=== PATIENT | female | born 1990 | race Caucasian/White ===

== ENCOUNTER 2018-05-17 19:38 | Emergency (ER) | payer OTHER, SELFPAY ==
[2018-05-17 19:39] VITALS: BP 165/84; PULSE 85; RESP 16; TEMP 36.8; O2SAT 100; BMI 24.0
[2018-05-17 20:36] LABS: Bacteria 0 SEEN /hpf (None Seen); Mucous, Urine 0 SEEN /hpf (<or=2+)
[2018-05-17 20:50] LABS: Internal QC Validated? YES +Cl - CLEAR BKGD; Pregnancy, Urine Negative Negative
[2018-05-17] MEDS: Naproxen 500 MG Tablet PO (20:54)
[2018-05-17 21:00] LABS: Color, Urine Yellow (Yellow); Glucose, Dipstick Normal (Normal); Ketone-Dipstick Negative (Negative); Leukocyte Esterase-Dipstick 500 /ul (Negative); Nitrite-Dipstick Negative (Negative); Occult Blood-Urine 25 /ul (Negative); Protein-Dipstick Negative (Negative); Specific Gravity, Urine 1.015 (1.002-1.030); Urine Bilirubin Dipstick Negative (Negative); Urine Clarity Sl Cldy (Clear); Urine Urobilinogen Normal (Normal)
[2018-05-17 21:02] LABS: Red Blood Cells-Urine 0-5 SEEN /hpf (0-5); Squamous Epithelial Cells - UA 0-5 SEEN /hpf (5-10); White Blood Cells 25-50 SEEN /hpf (0-5)
[2018-05-17 21:03] LABS: Amorphous Sediment 1+ URATE
[2018-05-17 21:06] LABS: Trichomonas 0-5 SEEN /hpf (None Seen)
--- NOTE | 2018-05-17 21:22 | ED.DCSUM_ITS ---
- ER Visit Summary Date of Service: 05/17/18 Chief Complaint: Vaginal discharge and dysuria History of Present Illness: The patient is a 27 F with a one-month history of dysuria, vaginal discharge, and low back pain. Patient states she had similar symptoms in the past with trichomonas. Last menstrual cycle was 2 weeks ago. Physical Examination: Vital signs unremarkable for blood pressure 165/84, otherwise unremarkable. Patient sitting upright in a bedside chair. She is in no acute distress. Head neck examination is normal. Heart is regular rate and rhythm. Lung sounds are clear. Abdomen is soft with mild tenderness in the suprapubic area. No guarding or rebound is noted. Back examination reveals mild CVA tenderness bilaterally. Test Results: Urinalysis shows 25-50 white cells with 0 bacteria. She does have trichomonas noted in the urine. Urine patency test is negative. Gonorrhea and Chlamydia cultures have been sent. Emergency Department Course and Treatment: Test results were discussed with the patient. She would prefer to do the 2 g of Flagyl now for treatment. She will follow-up with her [facility] for further testing. If her gonorrhea or chlamydia test should come back positive she will receive a phone call with further instructions and antibiotics. Treatment Plan: [] Disposition: Discharge Impression: Trichomonas This note was generated with [employer] dictation software. It may contain incorrect words, spelling, and punctuation that were not noted in review of the chart prior to signing ED Disposition - Plan for ED Patient: Chief Complaint: Complaint Referrals: Levi Malave MD [Primary Care Provider] -
--- NOTE | 2018-05-17 21:22 | ED.DEP ---
ED Disposition - Plan for ED Patient: Disposition: Home or Assisted Living Chief Complaint: Complaint Instructions: ED Vaginitis Trichomonas Referrals: Levi Malave MD [Primary Care Provider] - Reema Mccann MD [STAFF PHYSICIAN] -
[2018-05-17] MEDS: metroNIDAZOLE 500 MG Tablet 2000 MG PO (21:29)
[2018-05-17 21:30] VITALS: BP 133/79; PULSE 79; RESP 18; O2SAT 100
--- NOTE | 2018-05-17 21:36 | ED.RN ---
lab called with positive lab results. urine positive for trichomonas. Dr. Resendiz made aware. no new orders at this time
[2018-05-17 22:20] LABS: Chlamydia Trachomatis by PCR Negative (Negative); Neisserai gonorrhoeae by PCR Negative (Negative); Probe Check PASS; Sample Adequacy Control PASS; Specimen Processing Control PASS
== END 2018-05-17 21:39 | disposition home or self-care (01) ==
PROVIDERS: Emergency Provider Emergency Medicine; Family Provider Family Medicine; PCP Family Medicine
DX: A59.8 Trichomoniasis of other sites (principal)
CPT/HCPCS: 81001; 81025; 87491; 87591; 99283

== ENCOUNTER 2020-10-17 14:25 | Outpatient (CLI) | payer BC, SELFPAY ==
[2020-10-17] VITALS (25 sets, daily range): BP systolic 133–169; BP diastolic 78–100; PULSE 80–94; TEMP 36.8; O2SAT 98–99; BMI 27.4
[2020-10-17] MEDS: Lactated Ringers 1,000 ML 15 ML IV (14:40)
[2020-10-17] MEDS: Magnesium Sulfate 4gm/100mL 4 GM/100 ML IV.SOLN. IV (14:46)
[2020-10-17] MEDS: Labetalol (Prefilled) 20 MG/4 ML IV (14:55)
[2020-10-17] MEDS: Magnesium Sulfate 4gm/100mL 2 GM/50 ML IV.SOLN. IV (15:06)
[2020-10-17 15:12] LABS: Hematocrit 41.2 % (37-47); Hemoglobin 14.2 g/dL (12.0-15.0); Mean Corp Hgb Conc 34.5 g/dL (32-36); Mean Corpuscular Hgb 31.5 pg (27.0-32.0); Mean Corpuscular Volume 91.4 fL (81-99); Mean Platelet Vol. 11.1 fl (6.2-12.0); Platelet Count 244 K/mm3 (150-450); RBC Distribution Width CV 13.2 % (11.6-14.6); RBC Distribution Width SD 43.8 fl (35.1-43.9); Red Blood Count 4.51 M/mm3 (4.2-5.4); White Blood Count 10.4 K/mm3 (4.4-11.0)
--- NOTE | 2020-10-17 15:16 | OB.TRI.NOTE ---
HPI - General HPI Narrative ROD HOLMAN, is a 30 F @ 32.4 weeks Di/Di twins - who presents from [facility] offices due to elevated BP. Most recent ultrasound shows Twin B with reverse flow- plan was to send to [place] for monitoring and delivery but due to BP in office pt sent to [facility] for Magnesium sulfate and labetalol HTN protocol. pt denies CASTRO, visual changes or Epigastric pain. [facility] Medications sulfamethoxazole-trimethoprim 1 tab PO BID #20 tablet 04/03/16 [Rx Last Taken Unknown] Allergy/AdvReac Type Severity Reaction Status Date / Time No Known Allergies Allergy Verified 05/17/18 19:39 Social History Smoking Status: Current every day smoker NST FHR Rate Baby A Baseline: 135 Variability:: Moderate Accelerations:: 15 x 15 Decelerations:: None NST Reactive:: Yes FHR Category:: Category I Uterine Activity:: irregular FHR Rate Baby B Baseline: 135 Variability:: Moderate Accelerations:: 15 x 15 Decelerations:: None NST Reactive:: Yes FHR Category:: Category I Uterine Activity:: irregular Assessment Assessment Detail: @ 32.4 weeks, Di/di twins- IUGR and reverse flow on twin B, severe range BP 1) HTN protocol 2) Magensium 3) transport to [facility] once stable 4) Celestone 12mg IM given in Office today 5) BPP ultrasound done at [facility] office- 12/17 both twins today
[2020-10-17] MEDS: Magnesium Sulfate 20 GM/500 ML BAG IV (15:17)
[2020-10-17 15:23] LABS: Protein, Urine (Random) 7.4 mg/dL (<11.9); Protein:Creat Ratio 361 mg/g CRE (0-200)
[2020-10-17 16:41] LABS: AST(SGOT) 25 U/L (15-37); Alanine Aminotransfer ALT/SGPT 20 U/L (13-56); Creatinine, Serum 0.58 mg/dL (0.55-1.02); EST Glomerular Filtration Rate 130 mL/min (>60); Est Glom Filt Rate - Afr Amer 158 mL/min (>60); Estimated Creatinine Clearance 135.19 ml/min
== END 2020-10-17 16:15 | disposition short-term general hospital (02) ==
LOC: WPOUT 14:33 → WP 14:34
PROVIDERS: PCP Family Medicine; Visit Provider Obstetrics & Gynecology
DX: O26.893 Other specified pregnancy related conditions, third trimester (principal); R03.0 Elevated blood-pressure reading, without diagnosis of hypertension; O30.043 Twin pregnancy, dichorionic/diamniotic, third trimester; O36.5931 Maternal care for other known or suspected poor fetal growth, third trimester, fetus 1; O36.5932 Maternal care for other known or suspected poor fetal growth, third trimester, fetus 2; O99.333 Smoking (tobacco) complicating pregnancy, third trimester; F17.200 Nicotine dependence, unspecified, uncomplicated; Z3A.32 32 weeks gestation of pregnancy
CPT/HCPCS: 96365; 96367; 36415; 59025; 59050; 82565; 82570; 84156; 84450; 84460; 84550; 85027; 94760; 99218; J7120; G0378

== ENCOUNTER → 2021-09-11 | Outpatient (CLI) | payer BC, MEDICAID, SELFPAY ==
[2021-09-11 12:50] LABS: Anion Gap 7 (5-15); BUN 12 mg/dL (7-18); Chloride 106 mmol/L (98-107); Creatinine, Serum 0.67 mg/dL (0.55-1.02); EST Glomerular Filtration Rate 111 mL/min (>60); Est Glom Filt Rate - Afr Amer 135 mL/min (>60); Glucose 88 mg/dL (74-106); Magnesium 2.4 mg/dL (1.6-2.6); Phosphorus 2.7 mg/dL (2.5-4.9); Sodium Level 139 mmol/L (136-145); Thyroid Stim Hormone (TSH) 0.93 uIU/mL (0.358-3.74)
[2021-09-11 12:53] LABS: PTHIN 36.9 pg/mL (18.4-80.1)
== END | disposition home or self-care (01) ==
PROVIDERS: PCP Family Medicine; Referring Provider Family Medicine; Visit Provider Family Medicine
DX: S32.000A Wedge compression fracture of unspecified lumbar vertebra, initial encounter for closed fracture (principal)
CPT/HCPCS: 36415; 80048; 82330; 83735; 83970; 84100; 84443

== ENCOUNTER → 2021-09-20 | Outpatient (CLI) | payer BC, MEDICAID, SELFPAY ==
--- NOTE | 2021-09-20 13:45 | MRI_ITS ---
STUDY: MRI LUMBAR SPINE WITHOUT CONTRAST REASON FOR EXAM: Female, 31 years old. COMPRESSION FX TECHNIQUE: Standardized fat and water weighted pulse sequences were obtained in the sagittal and axial planes. COMPARISON: None FINDINGS: There is a compression fracture of L3 with a Schmorl''s node. There is mild retropulsion of bone into the canal. There is mild indentation of the superior endplate of L1 with resultant mild compression. T12-L1: Normal endplates. Normal disc height, hydration and morphology. Normal bilateral facet joints. Normal central canal and bilateral lateral recesses. Normal bilateral intervertebral neural foramina. Normal lumbar lordosis. There is no substantial scoliosis. Normal conus medullaris that terminates at the L1-2: Normal endplates. Normal disc height, hydration and morphology. Normal bilateral facet joints. Normal central canal and bilateral lateral recesses. Normal bilateral intervertebral neural foramina. L2-3: Normal endplates. Normal disc height, hydration and morphology. Normal bilateral facet joints. Normal central canal and bilateral lateral recesses. Normal bilateral intervertebral neural foramina. L3-4: Normal endplates. Normal disc height, hydration and morphology. Normal bilateral facet joints. Normal central canal and bilateral lateral recesses. Normal bilateral intervertebral neural foramina. L4-5: Normal endplates. Normal disc height, hydration and morphology. Normal bilateral facet joints. Normal central canal and bilateral lateral recesses. Normal bilateral intervertebral neural foramina. L5-S1: Normal endplates. Normal disc height, hydration and morphology. Normal bilateral facet joints. Normal central canal and bilateral lateral recesses. Normal bilateral intervertebral neural foramina. Normal visualized sacral ala. Normal visualized paraspinous soft tissue structures. MRI/Spine Lumbar (Routine) IMPRESSION: There are compression fractures of L1 and L3. Electronically Signed: Reed Rivas MD at 5:00 EDT ,
== END | disposition home or self-care (01) ==
LOC: MRI 13:42
PROVIDERS: PCP Family Medicine; Referring Provider Family Medicine; Visit Provider Family Medicine
DX: S32.000A Wedge compression fracture of unspecified lumbar vertebra, initial encounter for closed fracture (principal)
CPT/HCPCS: 72148

== ENCOUNTER → 2022-02-21 | Outpatient (CLI) | payer BC, MEDICAID, SELFPAY ==
[2022-02-21 17:46] LABS: Hematocrit 42.9 % (37-47); Mean Corp Hgb Conc 32.6 g/dL (32-36); Mean Corpuscular Hgb 30.7 pg (27.0-32.0); Mean Corpuscular Volume 94.1 fL (81-99); Mean Platelet Vol. 10.5 fl (6.2-12.0); Platelet Count 157 K/mm3 (150-450); RBC Distribution Width CV 13.2 % (11.6-14.6); RBC Distribution Width SD 45.2 fl (35.1-43.9); Red Blood Count 4.56 M/mm3 (4.2-5.4); White Blood Count 7.1 K/mm3 (4.4-11.0)
[2022-02-21 18:03] LABS: Vitamin B12 664 pg/mL (211-911); Vitamin D,25 Hydroxy 75.8 ng/mL
[2022-02-21 19:36] LABS: Anion Gap 8 (5-15); BUN 10 mg/dL (7-18); BUN/Creat Ratio 15.7 RATIO (10-20); Chloride 109 mmol/L (98-107); Creatinine, Serum 0.64 mg/dL (0.55-1.02); EST Glomerular Filtration Rate 117 mL/min (>60); Est Glom Filt Rate - Afr Amer 142 mL/min (>60); Ferritin 48 ng/mL (8-252); Follicle Stimulating Hormone 6.2 mIU/mL; Glucose 98 mg/dL (74-106); Iron 39 ug/dL (50-170); Luteinizing Hormone 6.6 mIU/mL; Potassium 4.4 mmol/L (3.5-5.1); Prolactin 10.8 ng/mL; Sodium Level 142 mmol/L (136-145); Thyroid Stim Hormone (TSH) 0.54 uIU/mL (0.358-3.74)
== END | disposition home or self-care (01) ==
LOC: MFPLAB 15:36
PROVIDERS: PCP Family Medicine; Referring Provider Family Medicine; Visit Provider Family Medicine
DX: N92.6 Irregular menstruation, unspecified (principal); Z13.31 Encounter for screening for depression
CPT/HCPCS: 36415; 80048; 82306; 82607; 82728; 83001; 83002; 83540; 84146; 84443; 85027

== ENCOUNTER 2022-02-26 14:38 | Outpatient (CLI) | payer BC, MEDICAID, SELFPAY ==
[2022-02-26 18:04] LABS: Erythrocyte Sedimentation Rate 3 mm/hr (0-30)
== END 2022-02-26 23:59 | disposition home or self-care (01) ==
LOC: MFPLAB 14:41
PROVIDERS: PCP Family Medicine; Referring Provider Family Medicine; Visit Provider Family Medicine
DX: Z13.31 Encounter for screening for depression (principal)
CPT/HCPCS: 85652

== ENCOUNTER → 2024-10-12 | Outpatient (CLI) | payer BC, SELFPAY ==
--- NOTE | 2024-10-12 10:36 | RAD_ITS ---
PROCEDURE: LUMBAR SPINE 2 OR 3 VIEWS 10/12/2024 REASON FOR EXAM: LUMBAR PAIN, HX OF FRACTURE TECHNIQUE: 2 view(s) of the lumbar spine COMPARISON: 09/12/2021 MRI. FINDINGS: Mild chronic superior endplate compression deformities of L1 and L3 which are unchanged from the prior MRI. No evidence of acute fracture or dislocation. Up to mild discogenic degenerative changes. RAD/Lumbar Spine 2 or 3 Views IMPRESSION: Stable mild chronic compression deformities. Mild spondylosis. Reading Location: [id number]
--- OUTSIDE RECORDS SUMMARY | 2024-10-12 21:04 | XMS RPT_ITS | CCD ---
Author Organization [facility] Inform ion Partnership [facility] Care Team Providers Care Cloth Dyeing Range Tender Name Role Phone EVE ALLEN C Unavailable Unavailable PRADO ALLEN C Unavailable Unavailable PRADO ALLEN C Unavailable Unavailable NO, DOCTOR ON Unavailable Unavailable NO, DOCTOR ON Unavailable Unavailable Unavailable Primary Care Provider Durga Mosqueda MD Primary Care Provider Levi Malave Referring Unavailable Levi Malave Attending Unavailable Levi Malave Primary Care Unavailable Levi Malave Referring Unavailable Levi Malave Attending Unavailable Levi Malave Primary Care Unavailable Levi Malave Attending Unavailable Levi Malave Primary Care Unavailable Levi Malave Referring Unavailable Levi Malave Referring Unavailable Levi Malave Attending Unavailable Levi Malave Primary Care Unavailable Durga Malave MD Primary Care Provider MEAGAN MONTALVO Referring Unavailable DURGA MALAVE Primary Care UnavailMEAGAN Pretty Referring Unavailable DURGA MALAVE Primary Care UnavailMEAGAN Pretty Attending Unavailable SELF Referring Unavailable DURGA MALAVE Primary Care UnavailMEAGAN Pretty Attending Unavailable MEAGAN MONTALVO Referring Unavailable UDRGA MALAVE Primary Care Unavailcindy MONTALVO MEAGAN Referring Unavailable DURGA MALAVE Primary Care UnavailMEAGAN Pretty Attending Unavailable DURGA MALAVE Primary Care Unavailcindy womack Medications Current Medications Medication Drug Class(es) Dates Sig (Normalized) Sig (Original) 1 ml ketorolac tromethamine 30 mg/ml cartridge (2 sources) Nonsteroidal Anti-inflammatory Drug, Cyclooxygenase Inhibitor Start: 09-06-2021 ketorolac (TORADOL) injection 30 mg Start: 09-06-2021 End: 09-06-2022 take 1 tablet by mouth every six hours as needed for pain ketorolac (TORADOL) 10 MG tablet Take 1 tablet by mouth every 6 hours as needed for Pain 20 tablet 0 09/06/2021 09/06/2022 Active levonorgestrel 0.861016 mg/hr intrauterine system (5 sources) Progestin, Progestin-containing Intrauterine Device Start: 08-13-2024 End: 08-11-2032 levonorgestrel (MIRENA) 21 mcg/24hr (up to 8 yrs) 52 mg IUD 1 each by INTRAUTERINE route as directed. 1 each 08/13/2024 08/11/2032 Active Start: 08-13-2024 End: 08-13-2024 1 each, INTRAUTERINE, ONCE ( UP TO 30 DAYS AMB), 1 dose, On Fri08/13/24 at 1230, Hazardous Potential Reproductive Risk Drug: Use appropriate PPE. Start: 02-27-2021 End: 02-26-2028 levonorgestrel (MIRENA) 20 m cg/24 hours (7 yrs) 52 mg IUD Indications: Encounter for IUD insertion 1 Each by INTRAUTERINE route as directed. 1 Each 02/27/2021 07/16/2024 Discontinued Comment on above: 1 Each by INTRAUTERI NE route as directed. sulfamethoxazole 800 mg / trimethoprim 160 mg oral tablet (4 sources) Dihydrofolate Reductase Inhibitor Antibacterial, Sulfonamide Antimicrobial Start: 04-03-20 16 take 1 tablet by mouth twice daily Sulfamethoxazole-T rimethoprim Active 1 TABLET PO TWICE A DAY April 03, 2016 1:00am tiZANidine 4 mg oral tablet (1 source) Central alpha-2 Adrenergic Agonist Start: 09-07-19 22 take 1 tablet by mouth every eight hours as needed for pain tiZANidine (ZANAFLEX) 4 MG tablet Take 1 tablet by mouth every 8 hours as needed (back pain) 30 tablet 0 09/06/2021 Active Completed/Discontinued Medications Medication Drug Class(es) Dates Sig (Normalized) Sig (Original) acetaminophen 325 mg oral tablet (2 sources) Start: 10-21-2020 End: 07-16-2024 take 2 tablets by mouth every four hours as needed acetaminophen (TYLENOL) 325 mg tablet Take 2 tablets by mouth every 4 hours as needed for pain. 45 tablet 10/21/2020 07/16/2024 Discontinued Comment on above: Take 2 tablets by mo uth every 4 hours as needed for pain. acetaminophen 325 mg / HYDROcodone bitartrate 5 mg oral tablet (2 sources) Opioid Agonist Start: 09-06-2021 End: 09-06-2021 HYDROcodone-acetami nophen (NORCO) 5-325 MG per tablet 1 tablet Start: 09-06-2021 End: 09-11-2021 take 1 tablet by mouth every six hours as needed for pain HYDROcodone-acetaminophen (NORCO) 5-325 MG per tablet Indications: Lumbar radiculopathy , Closed compression fracture of body of L1 vertebra ([facility]) , Closed compression fracture of L3 vertebra, initial encounter ([facility]) Take 1 tablet by mouth every 6 hours as needed for Pain for up to 5 days. 20 tablet 0 09/06/2021 09/11/2021 Active diphenhydrAMINE (2 sources) Histamine-1 Receptor Antagonist End: 07-16-2024 diphenhydramine HCl (UNISOM SLEEPGELS ORAL) Take by mouth. 07/16/2024 Discontinued diphenhydramine HCl (UNISOM SLEEPGELS ORAL) Take by mouth. 0 Active Comment on above: Take by mouth. docusate sodium 100 mg oral capsule (2 sources) Start: End: take 2 capsules by mouth once daily at bedtime docusate sodium (COLACE) 100 mg capsule Take 2 capsules by mouth daily at bedtime. 30 capsule 10/21/2020 07/16/2024 Discontinued Comment on above: Take 2 capsules by m outh daily at bedtime. 168 hr ethinyl estradiol 0.54463 mg/hr / norelgestromin 0.51180 mg/hr transdermal system (1 source) Progestin, Estrogen Start: 5 End: Ethinyl Estradiol-Norelgestr om (XULANE) 150-35 mcg/24 hr patch Apply 1 Patch as directed one time a week. Wear one patch continuously for 1 week. Replace the same day of the week for a total of three weeks. 12 Patch 1 07/16/2024 07/16/2024 Discontinued HERBAL COMPLEX NO.323 ORAL (2 sources) End: HERBAL COMPLEX NO.323 ORAL Take by mouth. Herbal supplements for mood 07/16/2024 Discontinued HERBAL COMPLEX N O.323 ORAL Take by mouth. Herbal supplements for mood 0 Active Comment on above: Take by mouth. Herba l supplements for mood ibuprofen 600 mg oral tablet (2 sources) Nonsteroidal Anti-inflammatory Drug Start: 10-22-19 End: 07-17-19 take 1 tablet by mouth every six hours as needed ibuprofen (MOTRIN) 600 mg tablet Take 1 tablet by mouth every 6 hours as needed for pain. 30 tablet 10/21/2020 07/16/2024 Discontinued Comment on above: Take 1 tablet by nacho th every 6 hours as needed for pain. NIFEdipine 60 mg osmotic 24 hr extended release oral tablet (2 sources) Dihydropyridine Calcium Channel Ely Start: 10-23-19 End: 07-17-19 take 1 tablet by mouth once daily NIFEdipine ER (PROCARDIA XL) 60 mg 24 hr tablet Take 1 tablet by mouth once daily. 30 tablet 10/22/2020 07/16/2024 Discontinued Comment on above: Take 1 tablet by nacho th once daily. 2 ml orphenadrine citrate 30 mg/ml injection (1 source) Muscle Relaxant Start: 09-07-19 End: 09-07-19 orphenadrine (NORFLEX) injection 60 mg predniSONE 20 mg oral tablet (1 source) Start: 09-07-19 End: 09-07-19 predniSONE (DELTASONE) tablet 40 mg Ycyzfvsa-Hp-Ffm-Fe-F A ( VITAMIN) tab (2 sources) End: 07-17-19 take 1 tablet by mouth once Gligfpta-Uk-Mye-Fe-F A ( VITAMIN) tab Take 1 tablet by mouth. 07/16/2024 Discontinued take 1 tablet by mouth once Pren atal Vdkykymr-Vu-Ztd-Fe-FA ( VITAMIN) tab Take 1 tablet by mouth. 0 Active Comment on above: Take 1 tablet by nacho th. Problems Active Problems Problem Classification Problem Date Documented Date Episodic/Chronic Contraceptive and procreative management (5 sources) Patient encounter status; Translations: [Encounter for other general counseling and advice on contraception] 07-16-2024 Episodic E Codes: Fall (1 source) Fall; Translations: [Unspecified fall, initial encounter] Episodic Induced (1 source) Encounter for elective termination of ; Translations: [Induced ] Onset: 07-30-2024 Episodic Menstrual disorders (1 source) Irregular menstruation, unspecified; Translations: [Irregular menstruation, unspecified] Onset: 02-28-2022 Chronic Other fractures (1 source) Compression fracture of lumbar spine; Translations: [Wedge compression fracture of first lumbar vertebra, initial encounter for closed fracture] Episodic Other fractures (1 source) Closed fracture of third lumbar vertebra; Translations: [Wedge compression fracture of third lumbar vertebra, initial encounter for closed fracture] Episodic Other screening for suspected conditions (not mental disorders or infectious disease) (1 source) Cancer cervix screening status; Translations: [Encounter for screening for malignant neoplasm of cervix] 08-13-2024 Episodic Residual codes; unclassified (1 source) H/O: medical termination of ; Translations: [Other specified postprocedural states] 08-04-2024 Episodic Residual codes; unclassified (1 source) Other specified postprocedural states; Translations: [Status post elective ] Onset: 08-04-2024 Episodic Screening and history of mental health and substance abuse codes (1 source) Encounter for screening for depression; Translations: [Encounter for screening for depression] Onset: 03-11-2022 Episodic Spondylosis; intervertebral disc disorders; other back problems (1 source) Lumbar radiculopathy; Translations: [Radiculopathy, lumbar region] Episodic Urinary tract infections (4 sources) Pyelonephritis; Translations: [Tubulo-interstitial nephritis, not specified as acute or chronic] Episodic Past or Other Problems Problem Classification Problem Date Documented Date Episodic/Chronic Cancer of cervix (7 sources) Low grade squamous intraepithelial lesion on cervical Papanicolaou smear; Translations: [Low grade squamous intraepithelial lesion on cytologic smear of cervix (LGSIL)] Onset: 04-28-2020 04-28-2020 Episodic Diabetes or abnormal glucose tolerance complicating ; childbirth; or the puerperium (7 sources) Abnormal glucose level; Translations: [Abnormal glucose complicating ] Onset: 09-14-2020 10-21-2020 Episodic Hypertension complicating ; childbirth and the puerperium (7 sources) Severe pre-eclampsia; Translations: [Severe pre-eclampsia, third trimester] Onset: 10-17-2020 Resolved: 08-13-2024 10-21-2020 Episodic Other complications of (7 sources) Rubella non-immune; Translations: [Supervision of other high risk pregnancies, unspecified trimester] Onset: 05-24-2020 05-24-2020 Episodic Other complications of (7 sources) Poor growth affecting management; Translations: [Maternal care for other known or suspected poor growth, third trimester, not applicable or unspecified] Onset: 10-13-2020 10-21-2020 Episodic Other fractures (2 sources) Wedge compression fracture of unspecified lumbar vertebra, initial encounter for closed fracture; Translations: [Wedge compression fracture of unspecified lumbar vertebra, initial encounter for closed fracture] Onset: 09-24-2021 Episodic Other and delivery including normal (17 sources) Dichorionic diamniotic twin ; Translations: [Twin , dichorionic/diamnioti c, first trimester] Onset: 04-14-2020 Resolved: 08-13-2024 04-14-2020 Episodic Residual codes; unclassified (7 sources) H/O Spinal surgery; Translations: [Other specified postprocedural states] Onset: 04-13-2020 04-14-2020 Episodic Unclassified (2 sources) Patient encounter status 08-04-2024 Results Test Name Value Interpretation Reference Range Facility [facility] 08-13-2024 CNOV Office Visit (OBGYWM ) MANDADANETTE Villa ([id number]) 1990 F Date Time Provider Department 08/13/24 11:45 AM MEAGAN MONTALVO During your visit today, we recorded the following information about you: Blood pressure Weight Last Period 122/80 70.8 kg 07/23/24 Meagan Montalvo APRN.SALES PRODUCT SPECIALIST 08/13/2024 12:07 PM Signed Bakery Products Checker offered: Patient Danette presents today for IUD insertion for contraception. Patient's last menstrual period was 06/23/2024 (exact date). GC/chlamydia: Not done: no risk factors and/or patient declines screening test: negative Side effects including irregular bleeding were discussed with the patient. The patient understands that it should be removed in 8 years or sooner if the patient desires a . IUD source: office provided IUD lot #: [id number] Exp date: 09/08/2026 [facility] [id number] UNIVERSAL PROTOCOL / SAFETY CHECKLIST Procedure to be Performed: Intrauterine Device (IUD) insertion Mirena Sign In: A Moment of CARE was completed. Appropriate PPE (Personal Protective Equipment) worn by all providers involved with the procedure. Special equipment not required. Patient/Surrogate Stated/Verified: Patient name, Date of , Relevant allergies, and The intended procedure Time Out: Relevant labs, photos, and/or imaging studies are not applicable. Intended patient and procedure match the source document(s) (e.g. consent, HANDP, associated studies [imaging, pathology]) match the intended patient and procedure. Consent obtained and matches the intended procedure. Yes. Correct side/site is not applicable. Medications required for this procedure are verified. Fire risk assessed and is not applicable. Implants: are not applicable. Sign Out: Specimens are all correctly labeled and sent. All instruments, equipment, possible retained foreign bodies are accounted for. Yes. The post-procedure plan of care has been communicated to the patient or surrogate. The cervix was prepped with betadine. The uterus sounded to 8 cm and the uterus is Anteverted.. Using sterile technique, the Mirena IUD was inserted without difficulty and the string was cut to 3 cm from the external os of the cervix. Patient tolerated procedure well. PLAN: Patient was advised to observe for signs and symptoms of infection including but not limited to fever, malodorous vaginal discharge and/or pain. The patient was told to check the string monthly for accurate placement. Bleeding expectations were reviewed. Follow up in one month. Meagan Montalvo APRN.Maki Melendez MA 08/13/2024 11:32 AM Signed POST IUD INSTRUCTIONS You may have irregular bleeding during the first 3 months of use. You may have mild-severe cramping for the next 48 hours. You may use over the counter medication (Motrin, Tylenol) as needed. Your IUD must be removed or replaced based on the following table: IUD Type Removed or replaced within: Margarita 3 years Kyleena 5 years Mirena 8 years Liletta 8 years Paragard 10 years Call the office for signs/symptoms of infection such as severe cramping, fever, or unusual bleeding. Check for string placement as instructed by your doctor. If you have any additional questions, please contact the office. Referring Provider: MEAGAN MONTALVO [[id number]] Allergies As of Date: 08/13/2024 (No Known Allergies) Date Reviewed: 08/13/2024 Reviewed by: Meagan Montalvo APRN.SALES PRODUCT SPECIALIST - Fully Assessed Reason for Visit: Insertion Of IUD [291] Primary Visit Diagnosis:Encounter for IUD insertion [Z30.430] Other Visit Diagnoses:Screen for STD (sexually transmitted disease) [Z11.3] Screening for cervical cancer [Z12.4] Screening for HPV (human papillomavirus) [Z11.51] Order(s):INSERT INTRAUTERINE DEVICE [8223486] Order #: [id number] [] levonorgestrel 21 mcg/24hr (up to 8 yrs) 52 mg 1 each intrauterine device (MIRENA)Disp: Rfl: levonorgestrel (MIRENA) 21 mcg/24hr (up to 8 yrs) 52 mg IUD1 each by INTRAUTERINE route as directed.Disp: 1 eachRfl: 0 UA DIP,URINE HCG (POC) [[id number]] Order #: [id number]. #:[id number] PAP TEST [[id number]] Order #: [id number]. #:[id number] Prescriptions as of 08/13/2024 - levonorgestrel (MIRENA) 21 mcg/24hr (up to 8 yrs) 52 mg IUD 1 each by INTRAUTERINE route as directed. Problem List As Of Date 08/13/2024 Noted Resolved History of back surgery [Z98.890] 04/13/2020 Dichorionic diamniotic twin in first *04/14/2020 08/13/2024 Papanicolaou smear of cervix with low grade squ*04/28/2020 Rubella non-immune status, antepartum [O09.899,*05/24/2020 Abnormal glucose complicating [O99.81*09/14/2020 Poor growth affecting management of mothe*10/13/2020 Dichorionic diamniotic twin gestation (HCC) [O3*10/17/2020 08/13/2024 Preeclampsia, severe, third trimester (HCC) [O1*10/17/2020 08/13/2024 Othe (more content not included)... Normal [facility] HIGH RISK HUMAN PAP[place] ROBE (HPV), PCR FOR DETECTION AND GENOTYPINGon 08-13-2024 HPV 16 Ag Ql (Unsp spec) Not detected Normal Not detected [facility] Comment on above: Order Comment: Speci men Type: FLUID SPECIMEN Ordering Facility: [facility] Address: [address] [place] [address] Performed By: #### H PVHRT #### [facility] CLIA [id number] [address] [place] [address] [place] HPV 18 Ag Ql (Unsp spec) Not detected Normal Not detected [facility] Comment on above: Order Comment: Speci men Type: FLUID SPECIMEN Ordering Facility: [facility] Address: [address] [place] [address] Performed By: #### H PVHRT #### [facility] CLIA [id number] [address] [place] [address] [place] HPV 31+33+35+39+45+51+5 2+56+58+59+66+68 DNA ARNOLD+probe Ql (Cvx) Not detected Normal Not detected [facility] Comment on above: Order Comment: Speci men Type: FLUID SPECIMEN Ordering Facility: [facility] Address: [address] [place] [address] Result Comment: High Risk HPV Other Type includes HPV types 31, 33, 35, 39, 45, 51, 52, 56, 58, 59, 66 and 68. Performed By: #### H PVHRT #### [facility] CLIA [id number] [address] [place] [address] [place] PAP TESTon 08-13-2024 ADEQUACY Normal [facility] Comment on above: Order Comment: Speci men Type: FLUID SPECIMEN Ordering Facility: [facility] Address: [address] [place] [address] Result Comment: Sati sfactory for interpretation. Transformation zone present Performed By: #### L [id number] #### [facility] CLIA [id number] [address] [place] [address] [place] CASE REPORT Normal [facility] Comment on above: Order Comment: Speci men Type: FLUID SPECIMEN Ordering Facility: [facility] Address: [address] [place] [address] Result Comment: Gyne cologic Cytology Report Case: [id number] Authorizing Provider: Meagan Montalvo APRN.SALES PRODUCT SPECIALIST Collected: 08/13/2024 12:09 PM Ordering Location: OB/Gynecology Received: 08/13/2024 04:41 PM First Screen: Serena Gorman, CT, ASCP Rescreen: Meagan Morfin, CT, ASCP Specimen: Pap Test, ThinPrep, Cervix Performed By: #### L [id number] #### [facility] CLIA [id number] [address] [place] [address] [place] CLINICAL HISTORY, CYTOLOGY, PLANT CONTROL OPERATOR Previous Abnormal Pap Normal [facility] Comment on above: Order Comment: Speci men Type: FLUID SPECIMEN Ordering Facility: [facility] Address: [address] [place] [address] Performed By: #### L [id number] #### [facility] CLIA [id number] [address] [place], [place] [id number] [place] FINAL PERFORMING LAB Normal [facility] Comment on above: Order Comment: Speci men Type: FLUID SPECIMEN Ordering Facility: [facility] Address: [address] [place], [place] [id number] Result Comment: Tech nical component, rn hematology screening performed at [facility], [address] [place], [place] [id number] CLIA# [id number] Diagnostic interpretation performed at [facility], [address] [place] [address] [place] [address] CLIA# [id number] Manufacturing Laborer: Ector Savage M.D. Performed By: #### L [id number] #### [facility] CLIA [id number] [address] [place] [address] [place] INTERPRETATION, CYTOLOGY, PLANT CONTROL OPERATOR Normal [facility] Comment on above: Order Comment: Speci men Type: FLUID SPECIMEN Ordering Facility: [facility] Address: [address] [place], [place] [address] Result Comment: Nega tive for intraepithelial lesion or malignancy. at 1607 EDT Performed By: #### L [id number] #### [facility] CLIA [id number] [address] [place] [address] [place] LMP 07/23/2024 Normal [facility] Comment on above: Order Comment: Speci men Type: FLUID SPECIMEN Ordering Facility: [facility] Address: [address] [place] [address] Performed By: #### L [id number] #### [facility] CLIA [id number] [address] [place] [address] [place] PAP DISCLAIMER COMMENT The Pap Smear is a screening test for cervical cancer. False negative results occur with all screening tests, emphasizing the need for rescreening at recommended intervals, and clinical correlation. Normal [facility] Comment on above: Order Comment: Speci men Type: FLUID SPECIMEN Ordering Facility: [facility] Address: [address] [place], [place] [address] Performed By: #### L [id number] #### [facility] CLIA [id number] [address] [place], [place] [id number] [place] PAP GEAR CUTTING MACHINE OPERATOR COMMENT This specimen has been analyzed by the [employer] / [employer] Imaging System, an automated imaging and review system, which assists the laboratory in evaluating cells on ThinPrep Pap tests. Following automated imaging, selected leach from every slide are reviewed by a rn hematology. Normal [facility] Comment on above: Order Comment: Speci men Type: FLUID SPECIMEN Ordering Facility: [facility] Address: [address] [place] [address] Performed By: #### L [id number] #### [facility] CLIA [id number] [address] [place] [address] [place] UA DIP,URINE HCG (POC)on Beta HCG ( test) Ql (U) Negative Negative [facility] Comment on above: Location:[facility], [facility], [place], [place], [facility] Cloth Examiner (POCT) Internal QC OK [facility] Location:[facility], [facility], [place], [place], [address] [place] [address] POINT OF CARE [facility] B-HCG SerPl-aCncon HCG.beta subunit Qn 1.4 m[IU]/mL Normal <5.0 [facility] Comment on above: Order Comment: Speci men Type: FLUID SPECIMEN Ordering Facility: [facility] Address: [address] [place] [address] Result Comment: Kira marie Performed By: #### H PVHRT #### [facility] CLIA [id number] [address] [place] [address] [place] CBC panel Auto (Bld)on 08-04 Erythrocyte distribution width (RBC) [Ratio] 13.7 % 11.5 - 15.0 % [facility] Hematocrit (Bld) [Volume fraction] 44.1 % 36.0 - 46.0 % [facility] Hemoglobin (Bld) [Mass/Vol] 14.4 g/dL 11.5 - 15.5 g/dL [facility] Interpretation and review of laboratory results Normal [facility] MCH (RBC) [Entitic mass] 28.9 pg 26.0 - 34.0 pg [facility] MCHC (RBC) [Mass/Vol] 32.7 g/dL 30.5 - 36.0 g/dL [facility] MCV (RBC) [Entitic vol] 88.6 fL 80.0 - 100.0 fL [facility] Nucleated RBC (Bld) [#/Vol] NINF [facility] Platelet mean volume (Bld) [Entitic vol] 9.2 fL 9.0 - 12.7 fL [facility] Platelets (Bld) [#/Vol] 250 10*3/uL [facility] RBC (Bld) [#/Vol] 4.98 10*6/uL 3.90 - 5.2 0 m/uL [facility] WBC (Bld) [#/Vol] 5.01 10*3/uL [facility] Erythrocyte distribution width (RBC) [Ratio] 13.7 % Normal 11.5-15.0 [facility] Comment on above: Order Comment: Speci men Type: BLOOD SPECIMEN Ordering Facility: [facility] Address: [address] [place] [address] Performed By: #### 5 [id number] #### [id number] [address] [place] [address] [place] Hematocrit (Bld) [Volume fraction] 44.1 % Normal 36.0-46.0 [facility] Comment on above: Order Comment: Gabriela abrmas Type: BLOOD SPECIMEN Ordering [facility]: [facility] Address: [address] [place] [address] Performed By: #### 5 [id number] #### [id number] [address] [place] [address] [place] Hemoglobin (Bld) [Mass/Vol] 14.4 g/dL Normal 11.5-15.5 [facility] Comment on above: Order Comment: Carlyi jose alberto Type: BLOOD SPECIMEN [facility] Address: [address] [place] [address] Performed By: #### 5 8410-2 #### [id number] [address] [place] [address] [place] MCH (RBC) [Entitic mass] 28.9 pg Normal 26.0-34.0 [facility] Comment on above: Order Comment: Speci men Type: BLOOD SPECIMEN [facility]ing [facility] Address: [address] [place] [address] Performed By: #### 5 8410-2 #### [facility] CLIA [id number] [address] [place] [address] [place] MCHC (RBC) [Mass/Vol] 32.7 g/dL Normal 30.5-36.0 [facility] Comment on above: Order Comment: Speci men Type: BLOOD SPECIMEN [facility] Address: [address] [place] [address] Performed By: #### 5 8410-2 #### [facility] CLIA [id number] [address] [place] [address] [place] MCV (RBC) [Entitic vol] 88.6 fL Normal 80.0-100.0 [facility] Comment on above: Order Comment: Speci men Type: BLOOD SPECIMEN [facility] Address: [address] [place] [address] Performed By: #### 5 8410-2 #### [facility] CLIA [id number] [address] [place] [address] [place] Nucleated RBC (Bld) [#/Vol] 10*3/uL Normal <0.01 [facility] Comment on above: Order Comment: Speci men Type: BLOOD SPECIMEN [facility] Address: [address] [place] [address] Performed By: #### 5 8410-2 #### [facility] [id number] [address] [place] [address] [place] Platelet mean volume (Bld) [Entitic vol] 9.2 fL Normal 9.0-12.7 [facility] Comment on above: Order Comment: Speci men Type: BLOOD SPECIMEN [facility] Address: [address] [place] [address] Performed By: #### 5 8410-2 #### [facility] CLIA [id number] [address] [place] [address] [place] Platelets (Bld) [#/Vol] 250 10*3/uL Normal 150-400 [facility] Comment on above: Order Comment: Speci men Type: BLOOD SPECIMEN [facility] Address: [address] [place] [address] Performed By: #### 5 8410-2 #### [facility] CLIA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 Performed By: #### L 3100.5055, L503.0105, L503.6550, L500.2500, L506.1000, L100.0500, L501.9520, L503.6150, L3100.5420 #### [facility] [address] [place], [address] Hemoglobin (Bld) [Mass/Vol] 14.0 g/dL Normal 12.0-15.0 [facility] Comment on above: Order Comment: Order Date: 02/21/22 Order Info: 41295-1 - CBC Order Info: - SED Performed By: #### L 3100.5055, L503.0105, L503.6550, L500.2500, L506.1000, L100.0500, L501.9520, L503.6150, L3100.5420 #### [facility] [address] [place], [address] MCH (RBC) [Entitic mass] 30.7 pg Normal 27.0-32.0 [facility] Comment on above: Order Comment: Order Date: 02/21/22 Order Info: 70052-9 - CBC Order Info: - SED Performed By: #### L 3100.5055, L503.0105, L503.6550, L500.2500, L506.1000, L100.0500, L501.9520, L503.6150, L3100.5420 #### [facility] [address] [place], [address] MCHC (RBC) [Mass/Vol] 32.6 g/dL Normal 32-36 [facility] Comment on above: Order Comment: Order Date: 02/21/22 Order Info: 38648-7 - CBC Order Info: 90680-3 - SED Performed By: #### L 3100.5055, L503.0105, L503.6550, L500.2500, L506.1000, L100.0500, L501.9520, L503.6150, L3100.5420 #### [facility] [address] [place], [address] MCV (RBC) [Entitic vol] 94.1 fL Normal 81-99 [facility] Comment on above: Order Comment: Order Date: 02/21/22 Order Info: 56258-9 - CBC Order Info: 64157-5 - SED Performed By: #### L 3100.5055, L503.0105, L503.6550, L500.2500, L506.1000, L100.0500, L501.9520, L503.6150, L3100.5420 #### [facility] [address] [place], [address] Platelet mean volume (Bld) [Entitic vol] 10.5 fL Normal 6.2-12.0 [facility] Comment on above: Order Comment: Order Date: 02/21/22 Order Info: 45638-6 - CBC Order Info: 71633-8 - SED Performed By: #### L 3100.5055, L503.0105, L503.6550, L500.2500, L506.1000, L100.0500, L501.9520, L503.6150, L3100.5420 #### [facility] [address] [place], [address] Platelets (Bld) [#/Vol] 157 10*3/uL Normal 150-450 [facility] Comment on above: Order Comment: Order Date: 02/21/22 Order Info: 46552-4 - CBC Order Info: 35871-8 - SED Performed By: #### L 3100.5055, L503.0105, L503.6550, L500.2500, L506.1000, L100.0500, L501.9520, L503.6150, L3100.5420 #### [facility] [address] [place], [address] RBC (Bld) [#/Vol] 4.56 10*6/uL Normal 4.2-5.4 [facility] Comment on above: Order Comment: Order Date: 02/21/22 Order Info: 17630-8 - CBC Order Info: 46464-0 - SED Performed By: #### L 3100.5055, L503.0105, L503.6550, L500.2500, L506.1000, L100.0500, L501.9520, L503.6150, L3100.5420 #### [facility] [address] [place], [place], [id number] RDW SD 45.2 fl High 35.1-43.9 [facility] Comment on above: Order Comment: Order Date: 02/21/22 Order Info: 53360-2 - CBC Order Info: 75405-2 - SED Performed By: #### L 3100.5055, L503.0105, L503.6550, L500.2500, L506.1000, L100.0500, L501.9520, L503.6150, L3100.5420 #### [facility] [address] [place], [place], [id number] WBC (Bld) [#/Vol] 7.1 10*3/uL Normal 4.4-11.0 [facility] Comment on above: Order Comment: Order Date: 02/21/22 Order Info: 36757-4 - CBC Order Info: 64198-6 - SED Performed By: #### L 3100.5055, L503.0105, L503.6550, L500.2500, L506.1000, L100.0500, L501.9520, L503.6150, L3100.5420 #### [facility] [address] [place], [place], [id number] Determination of erythrocyte mean corpuscular volume (MCV)on 02-21-2022 MCV (RBC) [Entitic vol] 94.1 fL 81-99 [facility] Work Phone: FSH and LHon 02-21-2022 FSH 6.2 mIU/mL Normal [facility] Comment on above: Order Comment: Order Date: 02/21/22 Order Info: 666-05 - BMP Order Info: 3015-07 - TSH Order Info: 2497-08 Order Info: 2275-08 - ALEA Order Info: 552-05 - [facility] Order Info: 2841-07 - PROL Result Comment: NORMAL REFERENCE RANGES FEMALE FOLLICULAR 2.3 - 12.6 mIU/mL MID-CYCLE PEAK 5.2 - 17.5 mIU/mL LUTEAL 1.7 - 12.9 mIU/mL POST-MENOPAUSAL ON MHT 5.9 - 72.8 mIU/mL NOT ON MHT 12.7 - 132.2 mlU/mL MALE 0.7 - 10.8 mIU/mL Performed By: #### L 3100.5055, L503.0105, L503.6550, L500.2500, L506.1000, L100.0500, L501.9520, L503.6150, L3100.5420 #### [facility] [place], [address] LH 6.6 mIU/mL Normal [facility] Comment on above: Order Comment: Order Date: 02/21/22 Order Info: 666-05 - BMP Order Info: 3015-07 - TSH Order Info: 2497-08 Order Info: 2275-08 - ALEA Order Info: 552-05 - [facility] Order Info: 2841-07 - PROL Result Comment: NORMAL REFERENCE RANGES FEMALE FOLLICULAR 1.9 - 26.2 mIU/mL MID-CYCLE PEAK 22.8 - 76.1 mIU/mL LUTEAL 0.6 - 16.6 mIU/mL POST-MENOPAUSAL ON MHT 1.1 - 52.4 mIU/mL NOT ON MHT 8.6 - 61.8 mIU/mL MALE 1.2 - 10.6 mIU/mL Performed By: #### L 3100.5055, L503.0105, L503.6550, L500.2500, L506.1000, L100.0500, L501.9520, L503.6150, L3100.5420 #### [facility] [address] [place], [place], [phone] Ferritinon 02-21-2022 Ferritin [Mass/Vol] 48 ng/mL Normal 8-252 [facility] Comment on above: Order Comment: Order Date: 02/21/22 Order Info: 06 - BMP Order Info: 3 - TSH Order Info: [id number] - FE Order Info: 2275-08 - ALEA Order Info: 552-05 - [facility] Order Info: 3 - PROL Performed By: #### L 3100.5055, L503.0105, L503.6550, L500.2500, L506.1000, L100.0500, L501.9520, L503.6150, L3100.5420 #### [facility] [address] [place], [place], [id number] Hematocrit Auto (Bld) [Volum e fraction]on 02-21-2022 Hematocrit (Bld) [Volume fraction] 42.9 % 37-47 [facility] Work Phone: Ironon 02-21-2022 Iron [Mass/Vol] 39 ug/dL Low 50-170 [facility] Comment on above: Order Comment: Order Date: 02/21/22 Order Info: 666-05 - BMP Order Info: 3015-07 - TSH Order Info: 4 - FE Order Info: 2275-08 - ALEA Order Info: 552-05 - [facility] Order Info: 3 - PROL Result Comment: Slig ht Hemolysis, Result may be falsely increased. Performed By: #### L 3100.5055, L503.0105, L503.6550, L500.2500, L506.1000, L100.0500, L501.9520, L503.6150, L3100.5420 #### [facility] [address] [place], [place], [phone] (540) Iron measurement (mass/mass) on 02-21-2022 Iron (Unsp spec) [Mass/Mass] 39 ug/dL 50-170 [facility] Work Phone: Comment on above: Slight Hemolysis, Re sult may be falsely increased. Laboratory - Chemistry and C hemistry - challengeon 02-21-2022 CO2 [Moles/Vol] 25.0 mmol/L 21.0-32.0 [facility] Work Phone: Cobalamin (Vitamin B12) [Mass/Vol] 664 pg/mL 211-911 [facility] Work Phone: Urea nitrogen/Creatinine [Mass ratio] 15.7 mg/mg 10-20 [facility] Work Phone: Laboratory - Hematology and Cell countson 02-21-2022 Erythrocyte distribution width (RBC) [Entitic vol] 45.2 fL 35.1-43.9 [facility] Work Phone: Erythrocyte distribution width (RBC) [Ratio] 13.2 % 11.6-14.6 [facility] Work Phone: MCH (RBC) [Entitic mass] 30.7 pg 27.0-32.0 [facility] Work Phone: MCHC Auto (RBC) [Mass/Vol]on 02-21-2022 MCHC (RBC) [Mass/Vol] 32.6 g/dL 32-36 [facility] Work Phone: No Panel Informationon 02-21 Estimated GFR (MDRD) Amer 142 mL/min >60 [facility] Work Phone: Comment on above: GFR Calc Estimated GFR (MDRD) Non-Af Amer 117 mL/min >60 [facility] Work Phone: Comment on above: Non- GFR Calc Follicle Stimulating Hormone 6.2 mIU/mL [facility] Work Phone: Comment on above: NORMAL REFERENCE RAN GES FEMALE FOLLICULAR 2.3 - 12.6 mIU/mL MID-CYCLE PEAK 5.2 - 17.5 mIU/mL LUTEAL 1.7 - 12.9 mIU/mL POST-MENOPAUSAL ON MHT 5.9 - 72.8 mIU/mL NOT ON MHT 12.7 - 132.2 mlU/mL MALE 0.7 - 10.8 mIU/mL Luteinizing Hormone 6.6 mIU/mL [facility] Work Phone: Comment on above: NORMAL REFERENCE RAN GES FEMALE FOLLICULAR 1.9 - 26.2 mIU/mL MID-CYCLE PEAK 22.8 - 76.1 mIU/mL LUTEAL 0.6 - 16.6 mIU/mL POST-MENOPAUSAL ON MHT 1.1 - 52.4 mIU/mL NOT ON MHT 8.6 - 61.8 mIU/mL MALE 1.2 - 10.6 mIU/mL Thyroid Stimulating Hormone (TSH) 0.54 uIU/mL 0.358-3.74 [facility] Work Phone: Vitamin D 25-Hydroxy 75.8 ng/mL [facility] Work Phone: Comment on above: Vitamin D 25(OH) Sta tus Range Deficiency <20 ng/mL (50nmol/L) Insufficiency 20 - 30 ng/mL (50 - 75 nmol/L) Sufficiency 30 - 100 ng/mL (75 - 250 nmol/L) Toxicity >100 ng/mL (>250 nmol/L) Platelets bldon 02-21-2022 Platelets (Bld) [#/Vol] 157 10*3/uL 150-450 [facility] Work Phone: Prolactinon 02-21-2022 PROLACTIN 10.8 ng/mL Normal [facility] Comment on above: Order Comment: Order Date: 02/21/22 Order Info: 0667-1 - BMP Order Info: 3016-3 - TSH Order Info: 2498-4 - FE Order Info: 2276-4 - ALEA Order Info: 0553-1 - [facility] Order Info: 2842-3 - PROL Result Comment: NORMAL REFERENCE RANGES FEMALE NON- 2.2 - 30.3 ng/mL 8.1 - 347.6 ng/mL POST-MENOPAUSAL 0.7 - 31.5 ng/mL MALE 2.5 - 17.4 ng/mL Performed By: #### L 3100.5055, L503.0105, L503.6550, L500.2500, L506.1000, L100.0500, L501.9520, L503.6150, L3100.5420 #### [facility] [address] [place], [address] Serum or plasma calcium shahzad urement (mass/volume)on 02-21-2022 Calcium [Mass/Vol] 9.0 mg/dL 8.5-10.1 [facility] Work Phone: Serum or plasma creatinine m easurement (mass/volume)on 02-21-2022 Creatinine [Mass/Vol] 0.64 mg/dL 0.55-1.02 [facility] Work Phone: Comment on above: The validity of the calculated GFR & GFRAA in patients over 70 years has not been determined. Clinical correlation is essential. Serum or plasma ferritin blanca surement (mass/volume)on 02-21-2022 Ferritin [Mass/Vol] 48 ng/mL 8-252 [facility] Work Phone: Serum or plasma prolactin me asurement (mass/volume)on 02-21-2022 Prolactin [Mass/Vol] 10.8 ng/mL [facility] Work Phone: Comment on above: NORMAL REFERENCE RAN GES FEMALE NON- 2.2 - 30.3 ng/mL 8.1 - 347.6 ng/mL POST-MENOPAUSAL 0.7 - 31.5 ng/mL MALE 2.5 - 17.4 ng/mL Serum or plasma urea nitroge n measurement (mass/volume)on 02-21-2022 Urea nitrogen [Mass/Vol] 10 mg/dL 7-18 [facility] Work Phone: Thin prep Papanicolaou smear with manual screeningon 02-21-2022 Thin prep Papanicolaou smear with manual screening 8 5-15 [facility] Work Phone: Thyroid Stim Hormone (TSH)on 02-21-2022 TSH 0.54 uIU/mL Normal 0.358-3.74 [facility] Comment on above: Order Comment: Order Date: 02/21/22 Order Info: 0667-1 - BMP Order Info: 3016-3 - TSH Order Info: 2498-4 - FE Order Info: 2276-4 - ALEA Order Info: 0553-1 - [facility] Order Info: 2842-3 - PROL Performed By: #### L 3100.5055, L503.0105, L503.6550, L500.2500, L506.1000, L100.0500, L501.9520, L503.6150, L3100.5420 #### [facility] [address] [place], [address] Vitamin B12on 02-21-2022 Cobalamin (Vitamin B12) [Mass/Vol] 664 pg/mL Normal 211-911 [facility] Comment on above: Order Comment: Order Date: 02/21/22 Order Info: 9 - B12 Order Info: 87727-8 - VITD25 Performed By: #### L 3100.5055, L503.0105, L503.6550, L500.2500, L506.1000, L100.0500, L501.9520, L503.6150, L3100.5420 #### [facility] [address] [place], [address] Vitamin D,25 Hydroxyon 02-21 Vitamin D 25-OH 75.8 ng/mL Normal [facility] Comment on above: Order Comment: Order Date: 02/21/22 Order Info: 9 - B12 Order Info: [id number] - VITD25 Result Comment: Trice min D 25(OH) Status Range Deficiency <20 ng/mL (50nmol/L) Insufficiency 20 - 30 ng/mL (50 - 75 nmol/L) Sufficiency 30 - 100 ng/mL (75 - 250 nmol/L) Toxicity >100 ng/mL (>250 nmol/L) Performed By: #### L 3100.5055, L503.0105, L503.6550, L500.2500, L506.1000, L100.0500, L501.9520, L503.6150, L3100.5420 #### [facility] [address] [place], [address] Spine Lumbar (Routine)on Spine Lumbar (Routine) [facility] [address] [place] [address] Spine Lumbar (Routine) MR#: [id number] Acct: [id number] Name: DANETTE STORY Rep #: [id number] : 1990 F 31 From: Reed Rivas MD PCP: Dr. Levi Malave MD Status: [facility] Study: Spine Lumbar (Routine) Date of Exam: 09/20/21 Exam# [id number] Ordering Dr: Levi Malave MD ADDENDUM by Dr. Arturo Mcgovern MD on 10/02/21 at 1706 ======== ADDENDUM ======== ADDENDUM: The compression fractures at L1 and L3 are old. No follow up required. Case discussed with Dr Malave. Electronically Signed: Arturo Mcgovern MD at 17:06 EDT , 10/02/21 1706 Date cc: Dr. Levi Malave MD * Signed ADDENDUM by Dr. Reed Rivas MD on 09/26/21 at 0000 ======== ADDENDUM ======== STUDY: MRI LUMBAR SPINE WITHOUT CONTRAST REASON FOR EXAM: Female, 31 years old. COMPRESSION FX TECHNIQUE: Standardized fat and water weighted pulse sequences were obtained in the sagittal and axial planes. COMPARISON: None FINDINGS: There is a compression fracture of L3 with a Schmorl''s node. There is mild retropulsion of bone into the canal. There is mild retropulsion of bone into the canal. There is mild indentation of the superior endplate of L1 with resultant mild compression. T12-L1: Normal endplates. Normal disc height, hydration and morphology. Normal bilateral facet joints. Normal central canal and bilateral lateral recesses. Normal bilateral intervertebral neural foramina. Normal lumbar lordosis. There is no substantial scoliosis. Normal conus medullaris that terminates at the L1-2: Normal endplates. Normal disc height, hydration and morphology. Normal bilateral facet joints. Normal central canal and bilateral lateral recesses. Normal bilateral intervertebral neural foramina. L2-3: Normal endplates. Normal disc height, hydration and morphology. Normal bilateral facet joints. Normal central canal and bilateral lateral recesses. Normal bilateral intervertebral neural foramina. L3-4: Normal endplates. Normal disc height, hydration and morphology. Normal bilateral facet joints. Normal central canal and bilateral lateral recesses. Normal bilateral intervertebral neural foramina. L4-5: Normal endplates. Normal disc height, hydration and morphology. Normal bilateral facet joints. Normal central canal and bilateral lateral recesses. Normal bilateral intervertebral neural foramina. L5-S1: Normal endplates. Normal disc height, hydration and morphology. Normal bilateral facet joints. Normal central canal and bilateral lateral recesses. Normal bilateral intervertebral neural foramina. Normal visualized sacral ala. Normal visualized paraspinous soft tissue structures. 09/26/21 0000 Date cc: Dr. Levi Malave MD * Signed ADDENDUM by Dr. Arturo Mcgovern MD on 10/02/21 at 1706 MRI/Spine Lumbar (Routine) IMPRESSION: undefined 10/02/21 1713 Date cc: Dr. Levi Malave MD * Signed ADDENDUM by Dr. Reed Rivas MD on 09/26/21 at 0000 MRI/Spine Lumbar (Routine) IMPRESSION: There are compression fractures of L1 and L3. Electronically Signed: Reed Rivas MD at 0:00 EDT , 09/26/21 0007 Date cc: Dr. Levi Malave MD * Signed STUDY: MRI LUMBAR SPINE WITHOUT CONTRAST REASON FOR EXAM: Female, 31 years old. COMPRESSION FX TECHNIQUE: Standardized fat and water weighted pulse sequences were obtained in the sagittal and axial planes. COMPARISON: None FINDINGS: There is a compression fracture of L3 with a Schmorl''s node. There is mild retropulsion of bone into the canal. There is mild indentation of the superior endplate of L1 with resultant mild compression. T12-L1: Normal endplates. Normal disc height, hydration and morphology. Normal bilateral facet joints. Normal central canal and bilateral lateral recesses. Normal bilateral intervertebral neural foramina. Normal lumbar lordosis. There is no substantial scoliosis. Normal conus medullaris that terminates at the L1-2: Normal endplates. Normal disc height, hydration and morphology. Normal bilateral facet joints. Normal central canal and bilateral lateral recesses. Normal bilateral intervertebral (more content not included)... Normal [facility] Calcium Ionizedon 09-12-2021 CALCIUM,IONIZED 5.2 mg/dL Normal 4.5-5.6 [facility] Comment on above: Result Comment: Perf ormed at: CB - [facility] [address] [id number] Counter Helper: Koko Crow PhD, Phone: [phone] Performed By: #### L 3100.5055, L503.0105, L503.6550, L500.2500, L506.1000, L100.0500, L501.9520, L503.6150, L3100.5420 #### [facility] [address] [place], [address] Basic Metabolic Profile (BMP )on 09-11-2021 BUN/CRE 18.0 RATIO Normal 10-20 [facility] Comment on above: Performed By: #### L 3100.5055, L503.0105, L503.6550, L500.2500, L506.1000, L100.0500, L501.9520, L503.6150, L3100.5420 #### [facility] [address] [place], [address] CA,Total 9.0 mg/dL Normal 8.5-10.1 [facility] Comment on above: Performed By: #### L 3100.5055, L503.0105, L503.6550, L500.2500, L506.1000, L100.0500, L501.9520, L503.6150, L3100.5420 #### [facility] [address] [place], [address] Chloride [Moles/Vol] 106 mmol/L Normal 98-107 [facility] Comment on above: Performed By: #### L 3100.5055, L503.0105, L503.6550, L500.2500, L506.1000, L100.0500, L501.9520, L503.6150, L3100.5420 #### [facility] [address] [place], [address] CO2 [Moles/Vol] 26.0 mmol/L Normal 21.0-32.0 [facility] Comment on above: Performed By: #### L 3100.5055, L503.0105, L503.6550, L500.2500, L506.1000, L100.0500, L501.9520, L503.6150, L3100.5420 #### [facility] [address] [place], [place], [phone] Creatinine [Mass/Vol] 0.67 mg/dL Normal 0.55-1.02 [facility] Comment on above: Result Comment: The validity of the calculated GFR GFRAA in patients over 70 years has not been determined. Clinical correlation is essential. Performed By: #### L 3100.5055, L503.0105, L503.6550, L500.2500, L506.1000, L100.0500, L501.9520, L503.6150, L3100.5420 #### [facility] [address] [place], [address] EST GFR - AA 135 mL/min Normal >60 [facility] Comment on above: Result Comment: Afri can Citizen Of [place] GFR Calc Performed By: #### L 3100.5055, L503.0105, L503.6550, L500.2500, L506.1000, L100.0500, L501.9520, L503.6150, L3100.5420 #### [facility] [address] [place], [place], [phone] ([phone] GAP 7 Normal 5-15 [facility] Comment on above: Performed By: #### L 3100.5055, L503.0105, L503.6550, L500.2500, L506.1000, L100.0500, L501.9520, L503.6150, L3100.5420 #### [facility] [address] [place], [address] GFR/1.73 sq M.predicted among non-blacks MDRD (S/P/Bld) [Vol rate/Area] 111 mL/min/{1.73_m2} Normal >60 [facility] Comment on above: Result Comment: Non- GFR Calc Performed By: #### L 3100.5055, L503.0105, L503.6550, L500.2500, L506.1000, L100.0500, L501.9520, L503.6150, L3100.5420 #### [facility] [address] [place], [address] Glucose [Mass/Vol] 88 mg/dL Normal 74-106 [facility] Comment on above: Performed By: #### L 3100.5055, L503.0105, L503.6550, L500.2500, L506.1000, L100.0500, L501.9520, L503.6150, L3100.5420 #### [facility] [address] [place], [address] Potassium [Moles/Vol] 4.0 mmol/L Normal 3.5-5.1 [facility] Comment on above: Performed By: #### L 3100.5055, L503.0105, L503.6550, L500.2500, L506.1000, L100.0500, L501.9520, L503.6150, L3100.5420 #### [facility] [address] [place], [address] Sodium [Moles/Vol] 139 mmol/L Normal 136-145 [facility] Comment on above: Performed By: #### L 3100.5055, L503.0105, L503.6550, L500.2500, L506.1000, L100.0500, L501.9520, L503.6150, L3100.5420 #### [facility] [address] [place], [address] Urea nitrogen [Mass/Vol] 12 mg/dL Normal 7-18 [facility] Comment on above: Performed By: #### L 3100.5055, L503.0105, L503.6550, L500.2500, L506.1000, L100.0500, L501.9520, L503.6150, L3100.5420 #### [facility] [address] [place], [place], [address] Basophil percentageon 2021 Basophil percentage 2.7 mg/dL 2.5-4.9 [facility] Work Phone: Chloride [Moles/Vol] 106 mmol/L 98-107 [facility] Work Phone: Glucose [Mass/Vol] 88 mg/dL 74-106 [facility] Work Phone: Potassium [Moles/Vol] 4.0 mmol/L 3.5-5.1 [facility] Work Phone: Sodium [Moles/Vol] 139 mmol/L 136-145 [facility] Work Phone: Laboratory - Chemistry and C hemistry - challengeon 09-11-2021 CO2 [Moles/Vol] 26.0 mmol/L 21.0-32.0 [facility] Work Phone: Magnesium [Mass/Vol] 2.4 mg/dL 1.6-2.6 [facility] Work Phone: [phone] Urea nitrogen/Creatinine [Mass ratio] 18.0 mg/mg 10-20 [facility] Work Phone: Magnesiumon 09-11-2021 Magnesium [Mass/Vol] 2.4 mg/dL Normal 1.6-2.6 [facility] Comment on above: Performed By: #### L 3100.5055, L503.0105, L503.6550, L500.2500, L506.1000, L100.0500, L501.9520, L503.6150, L3100.5420 #### [facility] [address] [place], [place], [phone] No Panel Informationon 09-11 Estimated GFR (MDRD) Amer 135 mL/min >60 [facility] Work Phone: Comment on above: GFR Calc Estimated GFR (MDRD) Non-Af Amer 111 mL/min >60 [facility] Work Phone: Comment on above: Non- GFR Calc Ionized Calcium 5.2 mg/dL [facility] Work Phone: Comment on above: Performed at: [facility] [address] [id number] Director: Kook Crow PhD, Phone: [phone] Parathyroid Hormone (Intact) 36.9 pg/mL 18.4-80.1 [facility] Work Phone: Thyroid Stimulating Hormone (TSH) 0.93 uIU/mL 0.358-3.74 [facility] Work Phone: PTHINon 09-11-2021 PTH 36.9 pg/mL Normal 18.4-80.1 [facility] Comment on above: Performed By: #### L 3100.5055, L503.0105, L503.6550, L500.2500, L506.1000, L100.0500, L501.9520, L503.6150, L3100.5420 #### [facility] [address] [place], [place], [id number] Phosphoruson 09-11-2021 Phosphate [Mass/Vol] 2.7 mg/dL Normal 2.5-4.9 [facility] Comment on above: Performed By: #### L 3100.5055, L503.0105, L503.6550, L500.2500, L506.1000, L100.0500, L501.9520, L503.6150, L3100.5420 #### [facility] [address] [place], [place], [id number] Serum or plasma calcium shahzad urement (mass/volume)on 09-11-2021 Calcium [Mass/Vol] 9.0 mg/dL 8.5-10.1 [facility] Work Phone: Serum or plasma creatinine m easurement (mass/volume)on 09-11-2021 Creatinine [Mass/Vol] 0.67 mg/dL 0.55-1.02 [facility] Work Phone: Comment on above: The validity of the calculated GFR & GFRAA in patients over 70 years has not been determined. Clinical correlation is essential. Serum or plasma urea nitroge n measurement (mass/volume)on 09-11-2021 Urea nitrogen [Mass/Vol] 12 mg/dL 7-18 [facility] Work Phone: Thin prep Papanicolaou smear with manual screeningon 09-11-2021 Thin prep Papanicolaou smear with manual screening 7 5-15 [facility] Work Phone: Thyroid Stim Hormone (TSH)on 09-11-2021 TSH 0.93 uIU/mL Normal 0.358-3.74 [facility] Comment on above: Performed By: #### L 3100.5055, L503.0105, L503.6550, L500.2500, L506.1000, L100.0500, L501.9520, L503.6150, L3100.5420 #### [facility] [address] [place], [place], [id number] CR Hip w/ Pelvis 2 or 3 View s Lefton 09-06-2021 CR Hip w/ Pelvis 2 or 3 Views Left [facility]: [id number] ACCESSION EXAM DATE/TIME PROCEDURE ORDERING PROVIDER [id number] 09/06/2021 21:14 EDT CR Hip w/ Pelvis 2 or 3 LORIE CALLEJAS DANIEL M Views Left n CPT code 07649 Reason For Exam (CR Hip w/ Pelvis 2 or 3 Views Left n) fall Report PELVIS AND LEFT HIP: CLINICAL INDICATION: Fall, pain. TECHNIQUE: AP pelvis plus AP and lateral views of the left hip COMPARISON: None. FINDINGS: There is no evidence for fracture or dislocation. The hips joints are unremarkable. The sacroiliac joints are normal. No bone lesion is identified. There is no soft tissue abnormality. On intrauterine contraceptive device is present IMPRESSION: Normal pelvis and left hip. Report Dictated on Final Dictating Physician: MD RUSSELL NICHOLAS Signed Date and Time: 09/06/2021 9:24 pm Signed by: MD RUSSELL NICHOLAS Transcribed Date and Time: 09/06/2021 9:25 Normal [facility] CR Spine Lumbosacral 2 or 3 Viewson 09-06-2021 CR Spine Lumbosacral 2 or 3 Views Patient Name: DANETTE STORY Diagnostic Radiology ACCESSION EXAM DATE/TIME PROCEDURE ORDERING PROVIDER [id number] 09/06/2021 21:14 EDT CR Spine Lumbosacral 2 ALLEN, LORIE, KIERAN M or 3 Views CPT code 37268 Reason For Exam (CR Spine Lumbosacral 2 or 3 Views) back pain, fall Report LUMBAR SPINE: CLINICAL INDICATION: Fall, pain. TECHNIQUE: AP, lateral and coned-down L5-S1. COMPARISON: None. FINDINGS: Five lumbar vertebrae are present. There are compression deformities of the superior endplates of L1 and L3, with approximately 30% vertebral body height loss. No significant spurring or intervertebral disc space narrowing is noted. There is no spondylolisthesis. The pedicles and sacroiliac joints are unremarkable. No abnormal soft tissue calcifications are noted. IMPRESSION: L1 and L3 compression deformities, likely acute. Report Dictated on Final Dictating Physician: MD RUSSELL NICHOLAS Signed Date and Time: 09/06/2021 9:26 pm Signed by: MD RUSSELL NICHOLAS Transcribed Date and Time: 09/06/2021 9:27 Normal [facility] ED Provider Noteon ED Provider Note NIVIA FRIEDMAN ED eMERGENCY dEPARTMENT eNCOUnter Pt Name: Danette Story Birthdate 1990 Date of evaluation: 09/06/2021 Provider: Kieran Callejas APRN - LORIE I have evaluated this patient on my own, per my scope of practice with an attending physician available for consultation. CHIEF COMPLAINT Chief Complaint Patient presents with ? Back Pain patient was cleaning bathroom and fell. Hit bathtub and now having lower back pain HISTORY OF PRESENT ILLNESS (Location/Symptom, Timing/Onset,Context/ Setting, Quality, Duration, Modifying Factors, Severity) Note limiting factors. HPI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 INFORMATION MAY BE OMITTED. This clinical summary was aggregated from multiple sources. Caution should be exercised in using it in the provision of clinical care. This summary normalizes information from multiple sources, and as a consequence, information in this document may materially change the coding, format and clinical context of patient data. In addition, data may be omitted in some cases. CLINICAL DECISIONS SHOULD BE BASED ON THE PRIMARY CLINICAL RECORDS. [facility]. provides no warranty or guarantee of the accuracy or completeness of information in this document.
== END | disposition home or self-care (01) ==
LOC: MTRAD 10:36
PROVIDERS: PCP Family Medicine; Referring Provider Family Medicine; Visit Provider Family Medicine
DX: M54.40 Lumbago with sciatica, unspecified side (principal)
CPT/HCPCS: 72100

== ENCOUNTER 2024-12-14 18:00 | Outpatient (RCR) | payer BC, SELFPAY ==
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
--- NOTE | 2025-03-08 10:44 | HP.PT.NRP ---
Patient Information Patient Information: ROD HOLMAN was seen in my office for initial evaluation on 11/04/24. The following Plan of Care was established for this patient: POC Established Initial Frequency: Every Other Week Initial Duration: 2 Months Anticipated Interventions Patient/Client Instruction: Educate patient on: Condition For the Purpose of:: To decrease pain, To increase ROM, To improve nutrient delivery to tissue, To improve muscle performance and motor function, To increase tolerance to activity/condition/position and To improve ability of physical actions for home/community/work/leisure Therapeutic Exercise to Include: Strength training, Postural training, Flexibilty training, Passive ROM, Active ROM and Dynamic Lumbar Stabilization For the Purpose of:: To decrease pain, To increase ROM, To improve nutrient delivery to tissue, To improve muscle performance and motor function, To increase tolerance to activity/condition/position and To improve ability of physical actions for home/community/work/leisure Manual Therapy Techniques to Include: Soft tissue mobilization For the Purpose of:: To decrease pain and To improve nutrient delivery to tissue Last Seen Last Seen: This patient was last seen in our office 12/14/24. Pertinent comments regarding their Physical therapy will appear below: Pt seen 3 visits of POC and was to f/u two weeks later but did not attend. at this point, it has been over 2 months and i will disocntinue due to nonattendance. At this point I will be discontinuing this patient from physical therapy. I would be happy to see this patient again in the future if found appropriate by the physician. Thank you! Nathan Vidal, DPT, OCS, CSCS Balance/Gait/Functional tests Balance/Special Test Scores Oswestry Low Back Score: 5
== END 2024-12-14 19:00 | disposition home or self-care (01) ==
LOC: PT 18:00
PROVIDERS: PCP Family Medicine; Referring Provider Student in an Organized Health Care Education/Training Program; Visit Provider Student in an Organized Health Care Education/Training Program
DX: M54.16 Radiculopathy, lumbar region (principal)
CPT/HCPCS: 97110; 97162